=== PATIENT | female | born 1970 | race Caucasian/White ===

== ENCOUNTER → 2019-07-20 | Outpatient (CLI) | payer MEDICARE, OTHER ==
[~2019-07-20] MED LIST: ASPI81CH PO; CITA20 PO; CYCL10 PO; DICL25ER PO; EFFIENT10 MG PO; FLUC150A PO; FURO40 PO; GABA600 PO; Isosorbide Mono30 MG PO; LEVSOD125 PO; MONT10T PO; Norco 5-325 Ta1 EACH PO; OMEPRAZOLE20 MG PO; POTCHL20ER PO; PRALUENT P150 MG/1 M SC; TRAM50 PO
== END | disposition home or self-care (01) ==
LOC: LAB 10:45 → LAB SHORT 10:45
DX: R30.0 Dysuria (principal); R35.0 Frequency of micturition
CPT/HCPCS: 87086

== ENCOUNTER → 2019-09-07 | Outpatient (CLI) | payer MEDICARE, OTHER | LOC: LAB 16:23 → LAB SHORT 16:23 | DX: J02.9 Acute pharyngitis, unspecified (principal) | CPT/HCPCS: 87081 ==

== ENCOUNTER 2020-07-27 07:10 | Day surgery (SDC) | payer MEDICARE, OTHER ==
[~2020-07-27] VITALS: Ht 172.7 cm; Wt 153.4 kg
[~2020-07-27 07:10] MED LIST changes: +ALBU90OI INH; +BUTRANS1 EAC5 TD; +EUTHYROX125 MCG PO; +FERSU300 PO; +HYDACE10B PO; -LEVSOD125 PO; +NITR.4SL SL; +Voltaren100 GM TOP; +ZYRTEC10 M2 PO
--- NOTE | 2020-07-27 07:50 | NUR ---
Ambulatory in Day Surgery Patient states colon prep results clear. Lungs clear T/O to Auscultation. Patient confirms NPO status and agrees with scheduled surgery. UNABLE TO PROVIDE URINE SAMPLE. CHEM BG 85.
--- NOTE | 2020-07-27 08:48 | NUR ---
07/27/20 0848 Kyleigh Ramos MONITOR INTACT WITH CONTINUOUS PULSE OXIMETRY AND INTERMITTENT BP.
--- NOTE | 2020-07-27 09:55 | NUR ---
PT WITH SKIN TEAR TO LOWER LEFT ABD UNDER PANIS. APPEARS TO BE 7 SMALL TEARS ALONG THE EDGE OF EXISTING STRETCH SOUSA. MINIMAL BLEEDING. CLEANED WITH STERILE SALINE AND STERILE 4X4. CURAD NON ADHESIVE DRESSING APPLIED X2, HELD IN PLACE WITH PANIS. INSTRUCTED PT TO KEEP AREA CLEAN AND DRY. PT VERBALIZES UNDERSTANDING.
--- NOTE | 2020-07-27 10:15 | NUR ---
PT ABLE TO DRESS INDEPENDANTLY. DENIES QUESTIONS REGARDING D/C INSTRUCTIONS. RIDE WAITING AT PT ENTRANCE. PT OUT VIA VOLUNTEER WHEELCHAIR.
== END 2020-07-27 22:43 | disposition home or self-care (01) ==
LOC: ORSCMMR 07:10
PROVIDERS: Internal Medicine Gastroenterology
PROC: 0DJD8ZZ Inspection of Lower Intestinal Tract, Via Natural or Artificial Opening Endoscopic (ICD-10-PCS; principal; 2020-07-27 08:45)
DX: Z12.11 Encounter for screening for malignant neoplasm of colon (principal); I10 Essential (primary) hypertension; I25.10 Atherosclerotic heart disease of native coronary artery without angina pectoris; G47.33 Obstructive sleep apnea (adult) (pediatric); E11.9 Type 2 diabetes mellitus without complications; E03.9 Hypothyroidism, unspecified; Z79.899 Other long term (current) drug therapy; E66.01 Morbid (severe) obesity due to excess calories; Z68.43 Body mass index [BMI] 50.0-59.9, adult
CPT/HCPCS: 82947; J2704; J7120